=== PATIENT | male | born 1950 | race Hispanic/Latino ===

== ENCOUNTER 2017-10-26 20:43 | Observation (INO) | payer MEDICARE ==
[~2017-10-26] VITALS: Ht 167.6 cm; Wt 94.8 kg
[2017-10-26] MEDS ORDERED: SODIUM CHLORIDE 0.9% 1000ML 1,000 ML IV STA (20:50)
[2017-10-26 20:58] LABS: BASOPHILS % 0.2 % (0.0-1.0); EOSINOPHILS # (AUTO) 0.4 (0.0-0.4); EOSINOPHILS % 3.1 % (0.0-6.0); HEMATOCRIT 44.6 % (38.2-49.6); HEMOGLOBIN 14.9 g/dL (14.0-18.0); LYMPHOCYTES # (AUTO) 1.1 (1.0-3.2); MEAN CORPUSCULAR HEMOGLOBIN 29.4 pg (28-32); MEAN CORPUSCULAR HGB CONC 33.4 g/dL (31-35); MONOCYTES # (AUTO) 0.7 (0.2-0.8); MONOCYTES % 6.1 % (4.4-11.3); NEUTROPHILS # (AUTO) 9.9 (2.1-6.9); NEUTROPHILS % 80.9 % (38.7-80.0); PLATELET COUNT 225 x10e3/uL (140-360); RED BLOOD COUNT 5.07 x10e6/uL (4.3-5.7); RED CELL DISTRIBUTION WIDTH 13.9 % (11.7-14.4)
[2017-10-26 21:08] LABS: INR 1.25; PROTHROMBIN TIME 14.8 seconds (11.9-14.5)
[2017-10-26 21:09] LABS: PARTIAL THROMBOPLASTIN TIME 27.2 seconds (23.8-35.5)
[2017-10-26 21:17] LABS: ALANINE AMINOTRANSFERASE 32 IU/L (0-55); ALBUMIN 4.2 g/dL (3.5-5.0); ALBUMIN/GLOBULIN RATIO 1.4 (0.8-2.0); ALKALINE PHOSPHATASE 46 IU/L (40-150); ANION GAP 12.7 mmol/L (8-16); BLOOD UREA NITROGEN 17 mg/dL (7-26); BUN/CREATININE RATIO 11 (6-25); CARBON DIOXIDE 29 mmol/L (22-29); CHLORIDE 105 mmol/L (98-107); CREATINE KINASE 222 IU/L (30-200); CREATININE, SERUM 1.52 mg/dL (0.72-1.25); EST GLOMERULAR FILTRATION RATE 46 ML/MIN (60-); GLUCOSE 107 mg/dL (74-118); POTASSIUM 3.7 mmol/L (3.5-5.1); SODIUM 143 mmol/L (136-145)
--- NOTE | 2017-10-26 21:29 | Diagnostic Imaging Report ---
EXAM: CHEST SINGLE (PORTABLE), AP 1 view INDICATION: Trauma, fall from ladder COMPARISON: None FINDINGS: LINES/TUBES: None LUNGS: Increased vascular congestion. PLEURA: No effusions or pneumothorax. HEART AND MEDIASTINUM: The heart is within normal size limits. Nonspecific prominence of the bilateral gwendolyn. BONES AND SOFT TISSUES: No acute findings. IMPRESSION: Increased vascular congestion and nonspecific prominence of the bilateral gwendolyn, possibly secondary to vascular enlargement. An upright PA and lateral view of the chest is recommended when clinically feasible. Signed by: Dr. Samantha Delaney M.D. on 10/26/2017 9:25 PM
--- NOTE | 2017-10-26 21:33 | Diagnostic Imaging Report ---
EXAM: CT ABDOMEN AND PELVIS with IV CONTRAST DATE: 10/26/2017 8:50 PM Time stamp on Exam: 2105 hours INDICATION: Trauma, fall from ladder, left sided pain COMPARISON: None TECHNIQUE: The abdomen and pelvis were scanned using a multidetector helical scanner. Coronal and sagittal reformations were obtained. Routine protocol performed. IV Contrast: 100 cc of severe 300 Oral Contrast: None CTDIvol has been reviewed. It is below the limits set by the Radiation Protocol Committee (RPC). FINDINGS: LOWER THORAX: No consolidations LIVER: No lacerations or hematoma. BILIARY: The gallbladder is unremarkable. No ductal dilation. SPLEEN: No lacerations or hematoma PANCREAS: No lacerations or hematoma ADRENALS: No hemorrhage KIDNEYS: Symmetric perfusion. No enhancing masses. No hydronephrosis. GI TRACT: No distention, wall thickening or evidence of obstruction. Colonic diverticulosis. Normal appendix. VESSELS: Mild atherosclerotic changes. PERITONEUM/RETROPERITONEUM: No free air or fluid LYMPH NODES: No lymphadenopathy REPRODUCTIVE ORGANS: Unremarkable BLADDER: Unremarkable SOFT TISSUES: Small fat-containing inguinal hernias. BONES: No suspicious bone lesions. IMPRESSION: No evidence of acute injury to the abdomen or pelvis. Signed by: Dr. Samantha Delaney M.D. on 10/26/2017 9:30 PM
--- NOTE | 2017-10-26 21:34 | Diagnostic Imaging Report ---
EXAM: PELVIS AP 1-2 VIEWS INDICATION: Trauma, fall from ladder COMPARISON: None FINDINGS: BONES: No acute fractures. JOINTS: No malalignment. SOFT TISSUES: Normal IMPRESSION: No evidence of a pelvic fracture. Signed by: Dr. Samantha Delaney M.D. on 10/26/2017 9:30 PM
--- NOTE | 2017-10-26 21:35 | Diagnostic Imaging Report ---
EXAMINATION: Head CT without contrast. HISTORY:Trauma, fall. COMPARISON:None. TECHNIQUE: Multidetector axial images were obtained from the foramen magnum to the vertex without contrast. The images were reconstructed using brain and bone algorithms. Thin section brain images were reformatted into coronal and sagittal planes. Intravenous contrast: None IMAGE QUALITY: Acceptable. FINDINGS: Skull/scalp: No lytic or blastic. lesions. No surgical changes. Parenchyma: Nonspecific bilateral frontoparietal confluent and patchy periventricular, subcortical and deep white matter hypodensity are likely related to small vessel ischemic changes. No acute hemorrhage, mass or acute major vascular territorial infarct. Arteries: No density suggestive of thrombosis. Dural sinuses: No abnormal density suggestive of thrombosis. Ventricles: No hydrocephalus or displacement. Extra-axial spaces: No abnormal density. Brain volume: Normal for age. Craniocervical junction: No mass, Chiari malformation, or basilar invagination. Sella: No mass. Paranasal/mastoid sinuses: Imaged portions unremarkable. IMPRESSION: No acute intracranial abnormality. Moderate supratentorial white matter microvascular ischemic changes. Signed by: Dr. Dian Joseph M.D. on 10/26/2017 9:32 PM
--- NOTE | 2017-10-26 21:44 | Diagnostic Imaging Report ---
History: Trauma, fall. Comparison studies: None Technique: Axial images were obtained through the cervical region.. Coronal and sagittal images reconstructed from the axial data.. Intravenous contrast: None Findings: Fractures: None. Soft tissue injuries: None. Atlantoaxial articulation: Intact. Alignment: Loss of normal cervical lordosis is either positional or due to muscle spasm. No scoliosis. Cervicomedullary junction: No abnormalities. The foramen magnum is patent. Soft tissues: No abnormalities. Vertebrae: No fractures, infection or neoplasm. Degenerative changes: C2-C3: Posterior disc osteophyte complex without canal stenosis. C3-C4: Posterior disc osteophyte complex results in mild canal stenosis. Mild right foraminal stenosis due to facet and uncovertebral arthrosis. C4-C5: Posterior disc osteophyte complex results in mild canal stenosis. Severe right and moderate left foraminal stenosis due to facet and uncovertebral arthrosis. C5-C6: Moderate left foraminal stenosis due to facet and uncovertebral arthrosis. C6-7: Severe left foraminal stenosis due to facet and uncovertebral arthrosis.. IMPRESSION: 1. No acute cervical spine fracture. Loss of normal cervical lordosis is either positional or due to muscle spasm. 2. Ligament, spinal cord and or vascular abnormalities cannot be excluded on the basis of this examination. 3. Cervical spondylosis as detailed above. Signed by: Dr. Dian Joseph M.D. on 10/26/2017 9:37 PM
[2017-10-26] MEDS ORDERED: MORPHINE SULFATE 2 MG/ML SYR IV PRN (22:15)
[2017-10-26] MEDS ORDERED: ONDANSETRON HCL 4 MG ORAL DISINTEGRATING TAB PO PRN (22:15)
[2017-10-26] MEDS ORDERED: SODIUM CHLORIDE 0.9% 1000ML 1,000 ML IV SCH (22:15)
[2017-10-26] MEDS ORDERED: FAMOTIDINE 20 MG/2 ML VIAL IV SCH (22:15)
[2017-10-26] MEDS ORDERED: SODIUM CHLORIDE 0.9% 50ML 50 ML ONE (22:29)
[2017-10-26] MEDS ORDERED: IOPAMIDOL 370 MG/ML 200 ML INFUS..BTL INJ ONE (22:30)
--- OUTSIDE RECORDS SUMMARY | 2017-10-26 22:39 | XMS REPORT ---
Author [facility] Address Unknown Phone Unavailable Care Team Providers Care Mobile Ui/Ux Designer Name Role Phone YELITZA NORRIS Unavailable Unavailable Problems This patient has no known problems. Allergies, Adverse Reactions, Alerts This patient has no known allergies or adverse reactions. Medications This patient has no known medications. Results Test Description Test Time Test Comments Text Results Atomic Results Result Comments CHEST SINGLE (PORTABLE) [place] [address] Patient Name: ELVI WILSON MR #: [id number] : 1950 Age/Sex: 67/M Req #: [id number] Adm Physician: Ordered by: YELITZA NORRIS MD Report #: [id number] Location: ER Room/Bed: Procedure: [id number] DX/CHEST SINGLE (PORTABLE) Exam Date: 10/26/17 Exam Time: 2100 REPORT STATUS: Signed EXAM: CHEST SINGLE (PORTABLE), AP 1 view INDICATION: Trauma, fall from ladder COMPARISON: None FINDINGS: LINES/TUBES: None LUNGS: Increased vascular congestion. PLEURA: No effusions or pneumothorax. HEART AND MEDIASTINUM: The heart is within normal size limits. Nonspecific prominence of the bilateral gwendolyn. BONES AND SOFT TISSUES: No acute findings. IMPRESSION: Increased vascular congestion and nonspecific prominence of the bilateral gwendolyn, possibly secondary to vascular enlargement. An upright PA and lateral view of the chest is recommended when clinically feasible. Signed by: Dr. Shahzad Delaney M.D. on 10/26/2017 9:25 PM Dictated By: SHAHZAD DELANEY MD 24 Transcribed By : CONCEPCIÓN on 10/26/172124 COPY TO: YELITZA NORRIS MD CT ABDOMEN/PELVIS W [place] [address] Patient Name: ELVI WILSON MR #: [id number] : 1950 Age/Sex: 67/M Req #: [id number] Adm Physician: Ordered by: YELITZA NORRIS MD Report #: [id number] Location: ER Room/Bed: Procedure: [id number] CT/CT ABDOMEN/PELVIS W Exam Date: 10/26/17 Exam Time : 2029 REPORT STATUS: Signed EXAM: CT ABDOMEN AND PELVIS with IV CONTRAST DATE: 10/26/2017 8:50 PM Time stamp on Exam: 2105 hours INDICATION: Trauma, fall from ladder, left sided pain COMPARISON: None TECHNIQUE: The abdomen and pelvis were scanned using a multidetector helical scanner. Coronal and sagittal reformations were obtained. Routine protocol performed. IV Contrast: 100 cc of severe 300 Oral Contrast: None CTDIvol has been reviewed. It is below the limits set by the Radiation Protocol Committee (RPC) . FINDINGS: LOWER THORAX: No consolidations LIVER: No lacerations or hematoma. BILIARY: The gallbladder is unremarkable. No ductal dilation. SPLEEN: No lacerations or hematoma PANCREAS: No lacerations or hematoma ADRENALS: No hemorrhage KIDNEYS: Symmetric perfusion. No enhancing masses. No hydronephrosis. GI TRACT: No distention, wall thickening or evidence of obstruction. Colonic diverticulosis. Normal appendix. VESSELS : Mild atherosclerotic changes. PERITONEUM/RETROPERITONEUM: No free air or fluid LYMPH NODES: No lymphadenopathy REPRODUCTIVE ORGANS: Unremarkable BLADDER: Unremarkable SOFT TISSUES: Small fat-containing inguinal hernias. BONES: No suspicious bone lesions. IMPRESSION: No evidence of acute injury to the abdomen or pelvis. Signed by: Dr. Shahzad Delaney M.D. on 10/26/2017 9:30 PM Dictated By: SHAHZAD DELANEY MD 29 Transcribed By: CONCEPCIÓN on 2129 COPY TO: YELITZA NORRIS MD PELVIS AP 1-2 VIEWS [place] [address] Patient Name: ELVI WILSON MR #: [id number] : 1950 Age/Sex: 67/M Req #: [id number] Adm Physician: Ordered by: YELITZA NORRIS MD Report #: [id number] Location: ER Room/Bed: Procedure: [id number] DX/PELVIS AP 1-2 VIEWS Exam Date: 10/26/17 Exam Time : 2054 REPORT STATUS: Signed EXAM: PELVIS AP 1-2 VIEWS INDICATION: Trauma, fall from ladder COMPARISON: None FINDINGS: BONES: No acute fractures. JOINTS: No malalignment. SOFT TISSUES: Normal IMPRESSION: No evidence of a pelvic fracture. Signed by: Dr. Shahzad Delaney M.D. on 10/26/2017 9:30 PM Dictated By: SHAHZAD DELANEY MD 29 Transcribed By: CONCEPCIÓN on 10/26/172129 COPY TO: YELITZA NORRIS MD CT BRAIN [address], [place] [address] Patient Name: ELVI WILSON MR # : [id number] : 1950 Age/Sex: 67/M [facility] #: [id number] Req #: [id number] Adm Physician: Ordered by: YELITZA NORRIS MD Report #: [id number] Location: ER Room/Bed: Procedure: [id number] CT/CT BRAIN WO Exam Date: 10/26/17 Exam Time: 2029 REPORT STATUS: Signed EXAMINATION: Head CT without contrast. HISTORY:Trauma, fall. COMPARISON:None. TECHNIQUE: Multidetector axial images were obtained from the foramen magnum to the vertex without contrast. The images were reconstructed using brain and bone algorithms. Thin section brain images were reformatted into coronal and sagittal planes. Intravenous contrast: None IMAGE QUALITY: Acceptable. FINDINGS: Skull/scalp: No lytic or blastic. lesions. No surgical changes. Parenchyma: Nonspecific bilateral frontoparietal confluent and patchy periventricular, subcortical and deep white matter hypodensity are likely related to small vessel ischemic changes. No acute hemorrhage, mass or acute major vascular territorial infarct. Arteries: No density suggestive of thrombosis. Dural sinuses: No abnormal density suggestive of thrombosis. Ventricles: No hydrocephalus or displacement. Extra- axial spaces: No abnormal density. Brain volume: Normal for age. Craniocervical junction: No mass, Chiari malformation, or basilar invagination. Sella: No mass. Paranasal/mastoid sinuses: Imaged portions unremarkable. IMPRESSION: No acute intracranial abnormality. Moderate supratentorial white matter microvascular ischemic changes. Signed by: Dr. Dian Joseph M.D. on 10/26/2017 9:32 PM Dictated By: DIAN JOSEPH MD 31 Transcribed By: CONCEPCIÓN on 10/26/172131 COPY TO: YELITZA NORRIS MD CT CERVICAL SPINE WO [place] [address] Patient Name: ELVI WILSON MR #: [id number] : 1950 Age/Sex: 67/M Req #: [id number] Adm Physician: Ordered by: YELITZA NORRIS MD Report #: [id number] Location: ER Room/Bed: Procedure: [id number] CT/CT CERVICAL SPINE WO Exam Date: 10/26/17 Exam Time: 2029 REPORT STATUS: Signed History: Trauma, fall. Comparison studies: None Technique: Axial images were obtained through the cervical region.. Coronal and sagittal images reconstructed from the axial data.. Intravenous contrast: None Findings: Fractures: None. Soft tissue injuries: None. Atlantoaxial articulation: Intact. Alignment: Loss of normal cervical lordosis is either positional or due to muscle spasm. No scoliosis. Cervicomedullary junction: No abnormalities. The foramen magnum is patent. Soft tissues: No abnormalities. Vertebrae: No fractures, infection or neoplasm. Degenerative changes: C2-C3: Posterior disc osteophyte complex without canal stenosis. C3-C4: Posterior disc osteophyte complex results in mild canal stenosis. Mild right foraminal stenosis due to facet and uncovertebral arthrosis. C4-C5: Posterior disc osteophyte complex results in mild canal stenosis. Severe right and moderate left foraminal stenosis due to facet and uncovertebral arthrosis. C5-C6: Moderate left foraminal stenosis due to facet and uncovertebral arthrosis. C6-7: Severe left foraminal stenosis due to facet and uncovertebral arthrosis.. IMPRESSION: 1. No acute cervical spine fracture. Loss of normal cervical lordosis is either positional or due to muscle spasm. 2. Ligament, spinal cord and or vascular abnormalities cannot be excluded on the basis of this examination. 3. Cervical spondylosis as detailed above. Signed by: Dr. Dian Joseph M.D. on 10/26/2017 9:37 PM Dictated By: DIAN JOSEPH MD 36 Transcribed By: CONCEPCIÓN on 10/26/172136 COPY TO: YELITZA NORRIS MD
[2017-10-26] MEDS ORDERED: LOSARTAN POTASS25 MG PO (23:12)
[2017-10-26] MEDS ORDERED: ULTRAM 50MG50 MG PO (23:12)
[2017-10-26] MEDS ORDERED: PAROXETINE HCL10 MG PO (23:12)
[2017-10-26] MEDS ORDERED: FENOFIBRATE145 MG PO (23:12)
[2017-10-27 02:05] VITALS: BP 174/94
[2017-10-27 02:42] VITALS: BP 174/94
[2017-10-27 03:02] VITALS: BP 174/94
[2017-10-27 04:00] VITALS: BP 135/78
[2017-10-27 08:00] VITALS: BP 160/81
[2017-10-27 08:13] LABS: BASOPHILS % 0.5 % (0.0-1.0); EOSINOPHILS # (AUTO) 0.1 (0.0-0.4); EOSINOPHILS % 1.4 % (0.0-6.0); HEMATOCRIT 42.2 % (38.2-49.6); HEMOGLOBIN 13.8 g/dL (14.0-18.0); LYMPHOCYTES # (AUTO) 1.1 (1.0-3.2); LYMPHOCYTES % 16.4 % (18.0-39.1); MEAN CORPUSCULAR HEMOGLOBIN 29.3 pg (28-32); MEAN CORPUSCULAR HGB CONC 32.7 g/dL (31-35); MEAN CORPUSCULAR VOLUME 89.6 fL (81-99); MONOCYTES # (AUTO) 0.6 (0.2-0.8); MONOCYTES % 8.8 % (4.4-11.3); NEUTROPHILS # (AUTO) 4.7 (2.1-6.9); NEUTROPHILS % 72.4 % (38.7-80.0); PLATELET COUNT 219 x10e3/uL (140-360); RED BLOOD COUNT 4.71 x10e6/uL (4.3-5.7); RED CELL DISTRIBUTION WIDTH 14.1 % (11.7-14.4)
[2017-10-27 08:33] LABS: ALBUMIN 3.6 g/dL (3.5-5.0); ALBUMIN/GLOBULIN RATIO 1.3 (0.8-2.0); ANION GAP 10.9 mmol/L (8-16); CALCIUM 9.1 mg/dL (8.4-10.2); CHOL/HDL RATIO 3.6 (3.9-4.7); CREATININE, SERUM 1.2 mg/dL (0.72-1.25); POTASSIUM 3.9 mmol/L (3.5-5.1)
[2017-10-27] MEDS ORDERED: FAMOTIDINE 20 MG/2 ML VIAL IV SCH (09:00)
[2017-10-27] MEDS ORDERED: TRAMADOL HCL 50 MG TAB PO PRN (10:00)
[2017-10-27] MEDS ORDERED: ACETAMINOPHEN/CODEINE 300MG - 30MG TAB PO PRN (10:15)
[2017-10-27] MEDS ORDERED: HYDRALAZINE HCL 20 MG/ML VIAL IV PRN (10:15)
[2017-10-27] MEDS ORDERED: LOSARTAN POTASSIUM 25 MG TAB PO SCH (10:15)
[2017-10-27] MEDS ORDERED: MECLIZINE HCL12.5 MG PO (10:26)
[2017-10-27] MEDS ORDERED: VALIUM5 MG PO (10:26)
[2017-10-27] MEDS ORDERED: FAMOTIDINE20 MG PO (10:26)
[2017-10-27] MEDS ORDERED: IBUPROFEN600 MG PO (10:26)
[2017-10-27 12:00] VITALS: BP 156/82
[2017-10-27] MEDS ORDERED: FAMOTIDINE 20 MG TAB PO SCH (16:30)
[2017-10-27] MEDS ORDERED: PAROXETINE HCL 20 MG TAB PO SCH (17:00)
[2017-10-28] MEDS ORDERED: FENOFIBRATE 145 MG TAB PO SCH (09:00)
[2017-10-28] MEDS ORDERED: LOSARTAN POTASSIUM 25 MG TAB PO SCH (09:00)
== END 2017-10-27 14:14 | disposition home or self-care (01) ==
LOC: ER 20:43 → ERHOLD 22:37 → IMCU 10-27 01:37
PROVIDERS: ADMIT Internal Medicine; ATTEND Internal Medicine
DX: S06.0X9A Concussion with loss of consciousness of unspecified duration, initial encounter (principal); S16.1XXA Strain of muscle, fascia and tendon at neck level, initial encounter; N18.9 Chronic kidney disease, unspecified; S01.512A Laceration without foreign body of oral cavity, initial encounter; S30.1XXA Contusion of abdominal wall, initial encounter; I10 Essential (primary) hypertension; E78.5 Hyperlipidemia, unspecified; G47.33 Obstructive sleep apnea (adult) (pediatric); R41.3 Other amnesia; F41.8 Other specified anxiety disorders; W11.XXXA Fall on and from ladder, initial encounter; Y93.89 Activity, other specified; Y92.017 Garden or yard in single-family (private) house as the place of occurrence of the external cause
CPT/HCPCS: 36415 ×2; 70450; 71045; 72125; 72170; 74177; 80053 ×2; 80061; 82550 ×2; 82553 ×2; 84484 ×2; 85025 ×2; 85610; 85730; 93005; 99284; G0378 ×2; J0360; J2270; J7030 ×2; Q9967

== ENCOUNTER 2020-06-03 17:45 | Observation (INO) | payer MEDICARE, OTHER ==
[~2020-06-03] VITALS: Ht 167.6 cm; Wt 94.8 kg
[~2020-06-03 17:45] MED LIST: FAMOTIDINE20 MG PO; FENOFIBRATE145 MG PO; IBUPROFEN600 MG PO; LOSARTAN POTASS25 MG PO; MECLIZINE HCL12.5 MG PO; PAROXETINE HCL10 MG PO; ULTRAM 50MG50 MG PO; VALIUM5 MG PO
[2020-06-03] MEDS ORDERED: ASPIRIN 325 MG TAB EC PO STA (18:06)
[2020-06-03 18:24] LABS: BASOPHILS % 0.8 % (0.0-1.0); EOSINOPHILS # (AUTO) 0.3 (0.0-0.4); EOSINOPHILS % 6.2 % (0.0-6.0); HEMATOCRIT 43.6 % (38.2-49.6); HEMOGLOBIN 14.2 g/dL (14.0-18.0); LYMPHOCYTES # (AUTO) 1.3 (1.0-3.2); LYMPHOCYTES % 26.2 % (18.0-39.1); MEAN CORPUSCULAR HEMOGLOBIN 28.6 pg (28-32); MEAN CORPUSCULAR HGB CONC 32.6 g/dL (31-35); MEAN CORPUSCULAR VOLUME 87.9 fL (81-99); MONOCYTES # (AUTO) 0.5 (0.2-0.8); MONOCYTES % 9.9 % (4.4-11.3); NEUTROPHILS # (AUTO) 2.9 (2.1-6.9); NEUTROPHILS % 56.5 % (38.7-80.0); PLATELET COUNT 262 x10e3/uL (140-360); RED BLOOD COUNT 4.96 x10e6/uL (4.3-5.7); RED CELL DISTRIBUTION WIDTH 14.5 % (11.7-14.4)
[2020-06-03 18:47] LABS: CREATINE KINASE 155 IU/L (30-200)
[2020-06-03 18:52] LABS: ALBUMIN 4.3 g/dL (3.5-5.0); ALBUMIN/GLOBULIN RATIO 1.8 (0.8-2.0); CALCIUM 9.1 mg/dL (8.4-10.2); CREATININE, SERUM 1.28 mg/dL (0.72-1.25)
[2020-06-03 19:55] VITALS: BP 149/86
[2020-06-03 20:00] VITALS: BP 149/86
[2020-06-03 21:28] VITALS: BP 149/86
[2020-06-03] MEDS ORDERED: POLYETHYLENE GLYCOL 3350 17 GM PACK PO PRN (22:45)
[2020-06-03] MEDS ORDERED: ACETAMINOPHEN 325 MG TAB PO PRN (22:45)
[2020-06-03] MEDS ORDERED: TEMAZEPAM 7.5 MG CAP PO PRN (22:45)
[2020-06-03] MEDS ORDERED: HYDRALAZINE HCL 20 MG/ML VIAL IV PRN (22:45)
[2020-06-03] MEDS ORDERED: ONDANSETRON HCL INJ 2MG/ML 2ML 2 MG/ML VIAL IV PRN (22:45)
[2020-06-03] MEDS: DEXTROSE 5%/0.45% SOD CHL 1,000 ML IV SCH (22:58)
[2020-06-03] MEDS ORDERED: FENOFIBRATE145 MG PO (23:16)
[2020-06-03] MEDS ORDERED: ASPIRIN EC81 MG PO (23:16)
[2020-06-03] MEDS ORDERED: CARVEDILOL12.5 MG PO (23:16)
[2020-06-03] MEDS ORDERED: FLOMAX0.4 MG PO (23:16)
[2020-06-03] MEDS ORDERED: PANTOPRAZOLE SO40 MG PO (23:16)
[2020-06-03] MEDS ORDERED: TESTOSTERO200 MG/1 M IM (23:16)
[2020-06-03] MEDS ORDERED: PRAVACHOL40 MG PO (23:16)
[2020-06-03] MEDS ORDERED: HYDROCHLOROTHIA25 MG PO (23:16)
[2020-06-04] VITALS: BP 131/80
[2020-06-04 04:00] VITALS: BP 133/69
[2020-06-04 06:18] LABS: BASOPHILS % 0.5 % (0.0-1.0); EOSINOPHILS # (AUTO) 0.3 (0.0-0.4); EOSINOPHILS % 7.5 % (0.0-6.0); HEMATOCRIT 42.8 % (38.2-49.6); HEMOGLOBIN 13.9 g/dL (14.0-18.0); LYMPHOCYTES # (AUTO) 1.2 (1.0-3.2); LYMPHOCYTES % 28.9 % (18.0-39.1); MEAN CORPUSCULAR HEMOGLOBIN 28.7 pg (28-32); MEAN CORPUSCULAR HGB CONC 32.5 g/dL (31-35); MEAN CORPUSCULAR VOLUME 88.2 fL (81-99); MONOCYTES # (AUTO) 0.4 (0.2-0.8); MONOCYTES % 9.3 % (4.4-11.3); NEUTROPHILS # (AUTO) 2.1 (2.1-6.9); NEUTROPHILS % 53.3 % (38.7-80.0); PLATELET COUNT 226 x10e3/uL (140-360); RED BLOOD COUNT 4.85 x10e6/uL (4.3-5.7); RED CELL DISTRIBUTION WIDTH 14.6 % (11.7-14.4)
[2020-06-04 07:04] LABS: CREATINE KINASE 104 IU/L (30-200)
[2020-06-04 07:44] LABS: MAGNESIUM 1.9 MG/DL (1.3-2.1); PHOSPHORUS 2.9 MG/DL (2.3-4.7)
[2020-06-04 07:59] LABS: THYROID STIMULATING HORMONE 2.16 uIU/mL (0.350-4.940)
[2020-06-04 08:00] VITALS: BP 120/78
[2020-06-04 08:02] LABS: ANION GAP 13.5 mmol/L (8-16); BLOOD UREA NITROGEN 11 mg/dL (7-26); BUN/CREATININE RATIO 10 (6-25); CALCIUM 8.9 mg/dL (8.4-10.2); CARBON DIOXIDE 25 mmol/L (22-29); CHLORIDE 109 mmol/L (98-107); CREATININE, SERUM 1.13 mg/dL (0.72-1.25); EST GLOMERULAR FILTRATION RATE > 60 ML/MIN (60-); GLUCOSE 91 mg/dL (74-118); POTASSIUM 3.5 mmol/L (3.5-5.1); SODIUM 144 mmol/L (136-145)
[2020-06-04 08:36] VITALS: BP 120/78
[2020-06-04] MEDS ORDERED: FAMOTIDINE 20 MG/2 ML VIAL IV SCH (09:00)
[2020-06-04] MEDS ORDERED: TEMAZEPAM 15 MG CAP PO PRN (09:00)
[2020-06-04] MEDS ORDERED: DOCUSATE SODIUM 100 MG CAP PO SCH (09:00)
[2020-06-04] MEDS ORDERED: METOPROLOL SUCCINATE 25 MG TAB XL PO SCH (09:00)
[2020-06-04 12:00] VITALS: BP 139/83
[2020-06-04] MEDS: DEXTROSE 5%/0.45% SOD CHL 1,000 ML IV SCH (12:05)
[2020-06-04] MEDS ORDERED: MECLIZINE HCL 12.5 MG TAB PO PRN (12:30)
[2020-06-04] MEDS ORDERED: IBUPROFEN 600 MG TAB PO PRN (12:30)
[2020-06-04] MEDS ORDERED: TRAMADOL HCL 50 MG TAB PO PRN (12:30)
[2020-06-04] MEDS ORDERED: TOPROL XL25 MG PO (12:37)
[2020-06-04] MEDS ORDERED: POTASSIUM CHLORIDE 20 MEQ TAB CR PO ONE (13:40)
[2020-06-04] MEDS ORDERED: FAMOTIDINE 20 MG TAB PO SCH (16:30)
[2020-06-04] MEDS ORDERED: CARVEDILOL 12.5 MG TAB PO SCH (17:00)
[2020-06-04] MEDS ORDERED: FENOFIBRATE 145 MG TAB PO SCH (21:00)
[2020-06-04] MEDS ORDERED: DIAZEPAM 5 MG TAB PO SCH (21:00)
[2020-06-04] MEDS ORDERED: SIMVASTATIN 20 MG TAB PO SCH (21:00)
[2020-06-04] MEDS ORDERED: TAMSULOSIN HCL 0.4 MG CAP PO SCH (21:00)
[2020-06-04] MEDS ORDERED: SIMVASTATIN 40 MG TAB PO SCH (21:00)
[2020-06-05] MEDS ORDERED: LOSARTAN POTASSIUM 25 MG TAB PO SCH (09:00)
[2020-06-05] MEDS ORDERED: PANTOPRAZOLE SOD 40 MG TABEC PO SCH (09:00)
[2020-06-05] MEDS ORDERED: FENOFIBRATE 145 MG TAB PO SCH (09:00)
[2020-06-05] MEDS ORDERED: ASPIRIN 81 MG ENTERIC COATED PO SCH (09:00)
[2020-06-05] MEDS ORDERED: HYDROCHLOROTHIAZIDE 25 MG TAB PO SCH (09:00)
== END 2020-06-04 15:20 | disposition home or self-care (01) ==
LOC: ER 17:52 → ERHOLD 18:48 → MED/SURG 19:44
PROVIDERS: ADMIT Internal Medicine; ATTEND Internal Medicine
DX: R07.89 Other chest pain (principal); R68.84 Jaw pain; I10 Essential (primary) hypertension; E78.5 Hyperlipidemia, unspecified; R94.31 Abnormal electrocardiogram [ECG] [EKG]; Z83.3 Family history of diabetes mellitus; Z82.49 Family history of ischemic heart disease and other diseases of the circulatory system; J98.11 Atelectasis; E87.6 Hypokalemia; E66.01 Morbid (severe) obesity due to excess calories; G47.33 Obstructive sleep apnea (adult) (pediatric); Z68.33 Body mass index [BMI] 33.0-33.9, adult; Z20.828 Contact with and (suspected) exposure to other viral communicable diseases
CPT/HCPCS: 36415 ×2; 71045; 80048; 80053; 82550 ×2; 82553 ×2; 83036; 83690; 83735; 83880; 84100; 84443; 84484 ×2; 85025 ×2; 93005; 93306; 99284; G0378 ×2; U0002